=== PATIENT | female | born 1975 | race African-American/Black ===

== ENCOUNTER 2021-06-15 04:58 | Emergency (ER) | payer OTHER ==
[~2021-06-15] VITALS: Ht 180.3 cm; Wt 65.8 kg
[2021-06-15 05:16] VITALS: BP 129/51
--- NOTE | 2021-06-16 10:02 | EKG ---
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: : 1975 Requested By: Chalo Duron Order Number: [id number] MD: Tyler Garcia Measurements Intervals [place] Rate: 57 P: 67 FL: 157 QRS: 8 QRSD: 112 T: 57 QT: 409 QTc: 399 Interpretive Statements Sinus rhythm Borderline intraventricular conduction delay RSR' in V1 or V2, probably normal variant No previous ECG available for comparison Electronically Signed On 06-15-2021 7:24:58 [employer] STRATEGIST by Tyler Garcia [email or web address] <ELECTRONICALLY SIGNED> By: Tyler Garcia MD, [facility] 06/15/21 0724 0539 0539 Tyler Garcia MD, FACC /EPI
== END 2021-06-15 06:28 | disposition home or self-care (01) ==
LOC: ER 04:58
DX: M25.511 Pain in right shoulder (principal)